=== PATIENT | female | born 1995 | race African-American/Black ===

== ENCOUNTER 2021-04-08 11:47 | Emergency (ER) | payer OTHER ==
[~2021-04-08] VITALS: Ht 162.6 cm; Wt 80.0 kg
[2021-04-08] MEDS: IBUPROFEN 800 MG TABLET PO ONE (13:01)
[2021-04-08 17:04] VITALS: BP 130/88
== END 2021-04-08 17:05 | disposition home or self-care (01) ==
LOC: EMS 11:47
DX: S93.401A Sprain of unspecified ligament of right ankle, initial encounter (principal); M25.471 Effusion, right ankle; X58.XXXA Exposure to other specified factors, initial encounter; Y93.39 Activity, other involving climbing, rappelling and jumping off; Y92.89 Other specified places as the place of occurrence of the external cause; Y99.8 Other external cause status
CPT/HCPCS: 29515; 73700; 99284; 73610-TC; Z7502; Z7610